=== PATIENT | female | born 1985 | race Caucasian/White ===

== ENCOUNTER → 2024-07-12 | Outpatient (CLI) | payer OTHER ==
[2024-07-12 11:36] LABS: BASO # 0.1 10^3/uL (0.0-0.2); BASO % 1.5 % (0.0-1.0); EOS # 0.1 10^3/uL (0.0-0.5); EOS % 2.6 % (0.0-3.0); HEMATOCRIT 38.9 % (36.0-47.0); HEMOGLOBIN 13.1 g/dl (12.0-15.5); LYMPH # 1.6 10^3/uL (1.5-5.0); LYMPH % 34.3 % (24.0-44.0); MEAN CORPUSCULAR HEMOGLOBIN 30.9 pg (27.0-33.0); MEAN CORPUSCULAR HGB CONC 33.7 g/dl (32.0-36.5); MEAN CORPUSCULAR VOLUME 91.7 fl (80.0-96.0); MONO # 0.4 10^3/uL (0.0-0.8); MONO % 8.8 % (2.0-8.0); NEUTROPHILS # 2.4 10^3/uL (1.5-8.5); NEUTROPHILS % 52.6 % (36.0-66.0); PLATELET COUNT, AUTOMATED 242 10^3/uL (150-450); RED BLOOD COUNT 4.24 10^6/uL (4.00-5.40); WHITE BLOOD COUNT 4.6 10^3/uL (4.0-10.0)
[2024-07-12 12:08] LABS: ALBUMIN 3.8 G/DL (3.2-5.2); ALKALINE PHOSPHATASE 46 U/L (46-116); ALT/SGPT 14 U/L (7.0-40); AST/SGOT 13 U/L (<34); BILIRUBIN,TOTAL 0.7 MG/DL (0.3-1.2); BLOOD UREA NITROGEN 12 MG/DL (9-23); CALCIUM LEVEL 9.1 MG/DL (8.5-10.1); CARBON DIOXIDE LEVEL 28 MMOL/L (20-31); CHLORIDE LEVEL 107 MMOL/L (98-107); FREE T4 1.25 NG/DL (0.89-1.76); GLOMERULAR FILTRATION RATE > 60.0 (>60); GLUCOSE, FASTING 77 MG/DL (60-100); IRON (FE) 69 UG/DL (50-170); PERCENT SATURATION 22.3 % (13.2-45.0); POTASSIUM SERUM 4.3 MMOL/L (3.5-5.1); SODIUM LEVEL 139 MMOL/L (136-145); THYROID STIMULATING HORMONE 0.674 uIU/ML (0.55-4.78); TOTAL IRON BINDING CAPACITY 309 UG/DL (250-425); TOTAL PROTEIN 7.1 G/DL (5.7-8.2)
[2024-07-12 12:09] LABS: ESTRADIOL 64.9 PG/ML; FOLLICLE STIMULATING HORMONE 8.4 mIU/ML; LUTEINIZING HORMONE 8.2 mIU/ML; TOTAL 25(OH) VITAMIN D 31.8 NG/ML (20.0-100.0)
[2024-07-12 12:11] LABS: VITAMIN B12 LEVEL 965 PG/ML (211-911)
[2024-07-13 11:53] LABS: INSULIN TOTAL2 4.1 uIU/mL (<=18.4)
== END ==
LOC: M LAB 08:59
PROVIDERS: ATTEND Nurse Practitioner Adult Health
DX: R53.83 Other fatigue (principal); N92.6 Irregular menstruation, unspecified; N83.209 Unspecified ovarian cyst, unspecified side

== ENCOUNTER → 2025-01-17 | Outpatient (CLI) | payer OTHER ==
[2025-01-17 11:46] LABS: URIC ACID 3.8 MG/DL (3.1-7.8)
[2025-01-17 11:49] LABS: C REACTIVE PROTEIN QUANTITATIV < 0.50 MG/DL (<1.0); IRON (FE) 168 UG/DL (50-170)
[2025-01-17 11:50] LABS: FOLATE 16.3 NG/ML (>5.4); PERCENT SATURATION 52.8 % (13.2-45.0); RHEUMATOID FACTOR QUANT < 3.5 IU/ML (<14); TOTAL 25(OH) VITAMIN D 35.2 NG/ML (20.0-100.0); TOTAL IRON BINDING CAPACITY 318 UG/DL (250-425)
[2025-01-17 11:51] LABS: FOLLICLE STIMULATING HORMONE 5.2 mIU/ML; LUTEINIZING HORMONE 7.5 mIU/ML; THYROID STIMULATING HORMONE 0.644 uIU/ML (0.55-4.78)
[2025-01-17 11:52] LABS: ESTRADIOL 164.1 PG/ML; FREE T4 1.13 NG/DL (0.89-1.76); VITAMIN B12 LEVEL 810 PG/ML (211-911)
[2025-01-17 11:53] LABS: CORTISOL AM 10.1 UG/DL (4.3-22.4)
[2025-01-19 17:32] LABS: ANA SCREEN, IFA POSITIVE (NEGATIVE)
== END ==
LOC: M LAB 10:08
PROVIDERS: ATTEND Nurse Practitioner Adult Health
DX: N83.202 Unspecified ovarian cyst, left side (principal); D25.9 Leiomyoma of uterus, unspecified; L65.9 Nonscarring hair loss, unspecified; R53.83 Other fatigue; M25.549 Pain in joints of unspecified hand

== ENCOUNTER → 2025-02-11 | Outpatient (CLI) | payer OTHER | LOC: M LAB 08:50 | PROVIDERS: ATTEND Nurse Practitioner Adult Health | DX: R76.0 Raised antibody titer (principal) ==

== ENCOUNTER 2025-05-04 08:02 | Emergency (ER) | payer OTHER ==
[~2025-05-04] VITALS: Ht 160 cm; Wt 54.9 kg
[2025-05-04 09:33] LABS: KETONE, URINE AUTO RFX NEGATIVE (NEGATIVE); LEUKOCYTE ESTERASE UR AUTO RFX NEGATIVE (NEGATIVE); NITRITE, URINE AUTO RFX NEGATIVE (NEGATIVE); RBC, URINE AUTO RFX 1 /HPF (0-3); SQUAM EPITHELIAL CELL UR AURFX 10 /HPF (0-6); WBC, URINE AUTO RFX 2 /HPF (0-3)
[2025-05-04 10:26] LABS: BASO # 0.1 10^3/uL (0.0-0.2); BASO % 1.1 % (0.0-1.0); EOS # 0.1 10^3/uL (0.0-0.5); EOS % 0.9 % (0.0-3.0); LYMPH # 1.7 10^3/uL (1.5-5.0); LYMPH % 31.2 % (24.0-44.0); MONO # 0.5 10^3/uL (0.0-0.8); MONO % 9.5 % (2.0-8.0); NEUTROPHILS # 3.2 10^3/uL (1.5-8.5); NEUTROPHILS % 56.9 % (36.0-66.0); PLATELET COUNT, AUTOMATED 217 10^3/uL (150-450)
[2025-05-04] MEDS: KETOROLAC 30 MG/ML 1 ML VIAL IV ONE (10:49)
[2025-05-04 10:55] LABS: ALT/SGPT 19 U/L (7.0-40); AST/SGOT 27 U/L (<34); CALCIUM LEVEL 8.9 MG/DL (8.5-10.1); CARBON DIOXIDE LEVEL 27 MMOL/L (20-31); CHLORIDE LEVEL 106 MMOL/L (98-107); CREATININE FOR GFR 0.79 MG/DL (0.55-1.30); GLOMERULAR FILTRATION RATE > 90.0 (>58); POTASSIUM SERUM 4.0 MMOL/L (3.5-5.1); SODIUM LEVEL 144 MMOL/L (136-145)
[2025-05-04 12:00] VITALS: BP 124/62; O2SAT 100
[2025-05-04] MEDS ORDERED: MIRA3350 PO (12:02)
[2025-05-04] MEDS ORDERED: COLA100C5 PO (12:02)
[2025-05-04] MEDS ORDERED: NITR100C3 PO (12:03)
[2025-05-04 12:11] VITALS: TEMP 98.9
== END 2025-05-04 12:15 | disposition home or self-care (01) ==
LOC: M ED 08:02
DX: K59.00 Constipation, unspecified (principal); N39.0 Urinary tract infection, site not specified
CPT/HCPCS: 74176; 80047; 80048; 80076; 81001; 83690; 84702; 85025; 93041; 96374; 99284; J1885